=== PATIENT | male | born 1995 | race African-American/Black ===

== ENCOUNTER 2022-04-06 14:23 | Inpatient (IN) | payer OTHER ==
[~2022-04-06] VITALS: Ht 172.7 cm; Wt 72.7 kg
[2022-04-06] MEDS ORDERED: CLAR40CA PO (14:44)
[2022-04-06] MEDS ORDERED: BENA25CA4 PO (14:44)
[2022-04-06 15:42] LABS: HEMATOCRIT 43.9 % (42.0-52.0); HEMOGLOBIN 14.7 g/dl (13.5-17.5); MEAN CORPUSCULAR HEMOGLOBIN 28.5 pg (27.0-33.0); MEAN CORPUSCULAR HGB CONC 33.5 g/dl (32.0-36.5); MEAN CORPUSCULAR VOLUME 85.2 fl (80.0-96.0); PLATELET COUNT, AUTOMATED 239 10^3/uL (150-450); RED BLOOD COUNT 5.15 10^6/uL (4.30-6.10); WHITE BLOOD COUNT 7.7 10^3/uL (4.0-10.0)
[2022-04-06 16:19] LABS: ACETAMINOPHEN LEVEL < 2.0 UG/ML (10.0-30.0); ALBUMIN 4.6 GM/DL (3.2-5.2); ALT/SGPT 41 U/L (12-78); BILIRUBIN,DIRECT 0.2 MG/DL (0.0-0.2); BILIRUBIN,TOTAL 1.2 MG/DL (0.2-1.0); BLOOD UREA NITROGEN 14 MG/DL (7-18); CALCIUM LEVEL 9.7 MG/DL (8.5-10.1); CARBON DIOXIDE LEVEL 25 MEQ/L (21-32); CHLORIDE LEVEL 107 MEQ/L (98-107); CREATININE FOR GFR 1.09 MG/DL (0.70-1.30); ETHYL ALCOHOL (ETHANOL) < 0.003 % (0.000-0.010); GLOMERULAR FILTRATION RATE > 60.0 (>60); GLUCOSE, FASTING 77 MG/DL (70-100); POTASSIUM SERUM 3.9 MEQ/L (3.5-5.1); SALICYLATE LEVEL < 1.7 MG/DL (5.0-30.0); SODIUM LEVEL 140 MEQ/L (136-145); TOTAL PROTEIN 8.6 GM/DL (6.4-8.2)
[2022-04-06 16:34] LABS: AMPHETAMINES LEVEL URINE NEGATIVE (NEGATIVE); BARBITURATES URINE NEGATIVE (NEGATIVE); BENZODIAZEPINES URINE NEGATIVE (NEGATIVE); CANNABINOIDS URINE NEGATIVE (NEGATIVE); COCAINE METABOLITE URINE NEGATIVE (NEGATIVE); METHADONE URINE NEGATIVE (NEGATIVE); OPIATES URINE NEGATIVE (NEGATIVE); PHENCYCLIDINE URINE NEGATIVE (NEGATIVE)
[2022-04-06 17:03] LABS: RSV AMPLIFICATION NEGATIVE (NEGATIVE)
[2022-04-06] MEDS ORDERED: HOME MED LIST COMPLETE! XX SCH (20:30)
[2022-04-06] MEDS ORDERED: diphenhydrAMINE 25MG CAP PO SCH (21:00)
[2022-04-07] MEDS ORDERED: MOM 30ML SUSPENSION UDC PO PRN (01:05)
[2022-04-07] MEDS ORDERED: traZODone 50 MG TAB PO PRN (01:05)
[2022-04-07] MEDS ORDERED: MAALOX 30 ML SUSP *UDC PO PRN (01:05)
[2022-04-07] MEDS ORDERED: ACETAMINOPHEN TAB 650MG DOSE (2X325MG) PO PRN (01:05)
[2022-04-07] MEDS ORDERED: OLANZapine ORAL DISINTEGRATING TAB 5MG PO PRN (01:05)
[2022-04-08 06:16] VITALS: BP 140/80
[2022-04-08] MEDS: buPROPion **XL** TABLET 150MG (WELLBUTRIN XL) PO SCH (10:09)
[2022-04-08 17:34] VITALS: BP 141/76
[2022-04-09 06:41] VITALS: BP 126/70
[2022-04-09] MEDS: buPROPion **XL** TABLET 150MG (WELLBUTRIN XL) PO SCH (09:07)
[2022-04-09 10:00] VITALS: BP 126/70
[2022-04-09 18:04] VITALS: BP 133/60
[2022-04-09] MEDS ORDERED: traZODone 100 MG TAB PO PRN (19:50)
[2022-04-10 06:38] VITALS: BP 119/60
[2022-04-10] MEDS: buPROPion **XL** TABLET 150MG (WELLBUTRIN XL) PO SCH (09:49)
[2022-04-10 18:16] VITALS: BP 141/82
[2022-04-10] MEDS: MIRTAZAPINE 15 MG TAB PO SCH (21:58)
[2022-04-11 07:04] VITALS: BP_SYST 130; BP_SYST 139; BP_DIAS 66; BP_DIAS 73
[2022-04-11] MEDS: buPROPion **XL** TABLET 150MG (WELLBUTRIN XL) PO SCH (08:58)
[2022-04-11 18:07] VITALS: BP 127/75
[2022-04-11] MEDS: MIRTAZAPINE 15 MG TAB PO SCH (21:55)
[2022-04-12 06:49] VITALS: BP 126/75
[2022-04-12] MEDS: buPROPion **XL** TABLET 150MG (WELLBUTRIN XL) PO SCH (08:58)
[2022-04-12 18:00] VITALS: BP 138/74
[2022-04-12] MEDS: MIRTAZAPINE 15 MG TAB PO SCH (20:33)
[2022-04-13 06:33] VITALS: BP 148/81
[2022-04-13] MEDS: buPROPion **XL** TABLET 150MG (WELLBUTRIN XL) PO SCH (09:30)
[2022-04-13 18:00] VITALS: BP 137/75
[2022-04-13] MEDS: MIRTAZAPINE 15 MG TAB PO SCH (20:56)
[2022-04-14 06:50] VITALS: BP 139/74
[2022-04-14] MEDS: buPROPion **XL** TABLET 150MG (WELLBUTRIN XL) PO SCH (08:50)
[2022-04-14 18:30] VITALS: BP 130/80
[2022-04-14] MEDS: MIRTAZAPINE 15 MG TAB PO SCH (20:53)
[2022-04-15 06:15] VITALS: BP_SYST 136; BP_SYST 153; BP_DIAS 67; BP_DIAS 79
[2022-04-15] MEDS ORDERED: MIRT-10 PO (08:59)
[2022-04-15] MEDS ORDERED: BUPR150T12 PO (08:59)
[2022-04-15] MEDS: buPROPion **XL** TABLET 150MG (WELLBUTRIN XL) PO SCH (09:16)
== END 2022-04-15 09:57 | disposition home or self-care (01) | DRG 881 ==
LOC: M ED 14:23 → M ED INP 04-07 01:03 → M PSY 04-07 01:24
PROVIDERS: ADMIT Student in an Organized Health Care Education/Training Program; ATTEND Psychiatry & Neurology Psychiatry
DX: F43.21 Adjustment disorder with depressed mood (principal); R45.851 Suicidal ideations; R45.850 Homicidal ideations; Z56.4 Discord with boss and workmates; F32.A Depression, unspecified; F41.9 Anxiety disorder, unspecified; Z91.51 Personal history of suicidal behavior; M54.50 Low back pain, unspecified; G89.29 Other chronic pain; Z20.822 Contact with and (suspected) exposure to COVID-19; Z79.899 Other long term (current) drug therapy

== ENCOUNTER → 2022-10-26 | Outpatient (REF) ==
[~2022-10-26] MED LIST: BENA25CA4 PO; BUPR150T12 PO; CLAR40CA PO; MIRT-10 PO
== END ==
LOC: M PLAIMG 09:29
PROVIDERS: ATTEND Internal Medicine
DX: R06.02 Shortness of breath (principal)